=== PATIENT | female | born 1995 | race Caucasian/White ===

== ENCOUNTER 2017-08-09 17:07 | Emergency (ER) | payer MEDICAID ==
[~2017-08-09] VITALS: Ht 170.2 cm; Wt 86.5 kg
[2017-08-09 17:09] VITALS: Ht 170.2 cm; Wt 86.5 kg
[2017-08-09] MEDS ORDERED: KET2CR15 TOP (17:29)
--- NOTE | 2017-08-09 17:34 | ERA ---
ER Documentation Chief Complaint Date/Time DATE: 08/09/17 TIME: 17:32 Chief Complaint GENERALIZE BODY RASH X2 WKS, ITCHY. HPI 22-year-old female presenting with the chief complaints of generalized body rash is more prominent on the arms and legs 2 weeks. Described as mildly pruritic. Denies fever, rapid progression of symptoms, recent antibiotic use, symptomatic close contacts, so diabetes, pain, opening in the skin or similar symptoms in the past. Patients vaccination status is up to date. Patient has no other complaints and describes no other associated manifestations. Nursing notes have been reviewed and are consistent with history given. ROS All systems reviewed and are negative except as per history of present illness. Medications Home Meds Active Scripts Ketoconazole* (Ketoconazole* 2% Cream (15gm)) 1 Applic Cr, 1 APPLIC TOP BID for 14 Days, TUB Prov:MITCHEL SINGH PA-C 08/09/17 Allergies Allergies: Coded Allergies: No Known Drug Allergies (Verified Allergy, 03/17/13) PMhx/Soc Hx Alcohol Use: No Hx Substance Use: No Hx Tobacco Use: No Physical Exam Vitals Vital Signs Date Time Temp Pulse Resp B/P Pulse Ox O2 Delivery O2 Flow Rate FiO2 08/09/17 17:09 97.6 61 20 120/65 98 Physical Exam Const: Overweight. No acute distress. Skin: Diffuse hyperpigmented macules more prominent on the arms and lower legs. No ulcer, induration, jaundice. Good turgor. Ext: No cyanosis or edema noted. Head: Normocephalic. As noted in skin exam. Eyes: Non-injected; No scleral erythema, or discharge. EOMI and SANDI bilaterally. Ears: Normal External Ears, EACs clear, TM normal bilaterally without erythema. Nose: Normal nose without discharge, septal deviation, or sinus tenderness. Oral: No oral edema visualized. Mucous membranes moist and pink. Neck: No cervical lymphadenopathy, or masses. Trachea midline. Supple ~ No meningismus. Pulm: Good air movement in upper and lower respiratory tracts. No dyspnea, stridor, tripoding or drooling. Clear to auscultation bilaterally. Cardio: Regular rate and rhythm. No JVD grossly observed. Radial and posterior tibial pulses 2+ bilaterally. No cyanosis. Capillary refill less than 2 seconds. Abd: Soft, non tender, non distended. No guarding. Normal bowel sounds. MS: Normal motor strength, normal tone with gross examination. Back: No midline or flank tenderness. Neur: Neurovascularly intact bilaterally. Awake, alert and oriented x3. Procedures/MDM 22-year-old female presenting with a chief complaint of rash 2 weeks as described in history and physical examination. Signs and symptoms are most consistent with tinea versicolor. Patient will be given ketoconazole topical cream twice daily. I will suspicion for EM, SJS, TAVIA and, or other life- threatening pathologies. I have spoke with the patient regarding their condition and future management. They have verbally responded that they understand their status and treatment plan. The patients vitals are stable, and their current condition is appropriate for discharge. The patient will be given discharge instructions with return precautions. Departure Diagnosis: Primary Impression: Tinea versicolor due to Malassezia furfur Condition: Stable Patient Instructions: Tinea Versicolor Additional Instructions: Follow up with your PCP within the next 1-3 days for a more thorough evaluation and a possible referral to a specialist. Return the the emergency department immediately if symptoms worsen or change. If you have any questions regarding medications, ask your pharmacist or us before you leave. If any adverse reactions occur while taking your medications, discontinue the treatment and return to the emergency department immediately. Take your medications as directed, and complete the entire course of treatment. MITCHEL SINGH PA-C Aug 09, 2017 17:34
== END 2017-08-09 17:44 | disposition home or self-care (01) ==
LOC: FTE 17:07
DX: B36.8 Other specified superficial mycoses (principal)
CPT/HCPCS: 99283

== ENCOUNTER 2018-11-30 14:03 | Inpatient (IN) | payer OTHER ==
[~2018-11-30] VITALS: Ht 170.2 cm; Wt 91.2 kg
[~2018-11-30 14:03] MED LIST: KET2CR15 TOP
[2018-11-30 14:13] VITALS: BMI 31.5
[2018-11-30 14:14] VITALS: BP 129/82; PULSE 70; RESP 18
[2018-11-30 14:27] VITALS: Ht 170.2 cm; Wt 91.2 kg
--- NOTE | 2018-11-30 17:36 | HP ---
Date/Time of Note Date/Time of Note DATE: 11/30/18 TIME: 17:34 OB - History Hx of Present Free Text/Dictation G1P)@35+wks GA with Borderline HTN and +1 pr in Urine and Uric acid of 6 : 1 Para: 0 Care: Good Care Ultrasounds: Normal mid trimester US Obstetrical Complications: None Medical Complications: None Past Family/Social History * Past Medical, Surgical, Family and Obstetric Histories reviewed from chart. OB Admission Exam Vital Signs Vital Signs Vital Signs Date Temp Pulse Resp B/P (MAP) Pulse Ox O2 O2 Flow FiO2 Time Delivery Rate 11/30/18 97.6 70 18 129/82 14:14 (98) Physical Exam Abdomen: WNL Cervical Dilatation: None Effacement: 0% Station: Ballotable Membranes: Intact Heart Rate: 140's Accelerations: Accelerations Present Decelerations: No Decelerations Varibility: Moderate Last 72 hours Lab Results CBC & BMP 11/30/18 15:31 Liver Function Test 11/30/18 15:31 Alanine Aminotransferase (ALT/SGPT) 23 Albumin 3.9 Alkaline Phosphatase 146 H Aspartate Amino Transf (AST/SGOT) 31 Direct Bilirubin 0.00 Total Protein 7.9 OB Assessment/Plan Reason for admission: observation Plan: Expectant Management Other plan: Close monitoring 24 hr urine for pr PIH panel tomorrow DARLIN BETANCOURT M.D. Nov 30, 2018 17:36
--- NOTE | 2018-11-30 17:36 | TRIAGE ---
OB Triage Datetime Report Generated by CPN: 11/30/2018 17:36 Datetime: 11/30/2018 16:44 Labor Evaluation Frequency: 0 Monitor Mode: External Pattern: Normal: <= 5 Contractions in 10 Minutes Resting Tone [place]: Relaxed Heart Rate FHR Baseline Rate: 145 Monitor Mode: External US FHR Baseline Changes: No Baseline Change Variability: Moderate 6-25 bpm Accelerations: 15X15 Decelerations: None Category: Category I Datetime: 11/30/2018 16:43 Vaginal Exam Dilatation (cms): 0.0 Effacement (%): 0 Station: -2 Exam By: Ghazal WIGGINS Datetime: 11/30/2018 15:00 Labor Evaluation Frequency: 1/HR Duration (sec)2399: 70 Pattern: Normal: <= 5 Contractions in 10 Minutes Resting Tone [place]: Relaxed Heart Rate FHR Baseline Rate: 150 Monitor Mode: External US Variability: Moderate 6-25 bpm Accelerations: 15X15 Decelerations: None Category: Category I Datetime: 11/30/2018 14:17 EGA: 35.1 Datetime: 11/30/2018 14:15 Time of Arrival: 11/30/2018 13:42 Arrived By: Ambulatory Arrived From: Home Chief Complaint: lower back pain/UCs Movement: Present Contractions: Irregular Rupture of Membranes: Denies Vaginal Bleeding: None Vaginal Discharge: Denies Recent Sexual Intercouse: Denies Abdominal Trauma: Not Applicable Patient Complaints: Contractions; Back Pain Time Provider Notified: 11/30/2018 14:15 Provider Notified: dr jane Initial Plan: nst Datetime: 11/30/2018 14:14 Assessment Type: Triage Maternal Assessment Level of Consciousness: Fully Conscious DTR's/Clonus: DTRs 2+; No Clonus Headache: Denies Blurred Vision: No Respiratory Effort: Unlabored; Regular Rhythm; Equal Expansion Breath Sounds, Left: Clear and Equal Breath Sounds, Right: Clear and Equal Nausea/Vomiting: Denies RUQ Epigastric Pain: Denies Lower Extremities Edema: None Degree: None Upper Extremities Edema: None Degree: None Facial Edema: None Fall Risk Assessment History of Falling: (0) No Secondary Diagnosis: (0) No Ambulatory Aid: (0) Bedrest/Nurse Assist IV Therapy: (0) No Gait: (0) Normal/Bedrest/Immobile Mental Status: (0) Oriented to Own Ability Fall Score: 0 Fall Risk Score Definition: No Risk: No action required Datetime: 11/30/2018 14:07 Stage of : OB Triage
[2018-12-01] MEDS: FERROUS SULFATE (EC) 325 MG TAB PO SCH (08:45)
[2018-12-01] MEDS: DOCUSATE SODIUM 100 MG CAP PO SCH (08:45)
[2018-12-01] MEDS: PRENATAL VITAMIN PO SCH (08:45)
--- NOTE | 2018-12-01 12:15 | NUR ---
SW NOTE: CONSULT - QUESTIONS RE: DISABILITY This editorial writer reviewed the pt's chart and met with her at bedside. Pt was AA&Ox4. She spoke [place]an fluently Pt is G-1 and P-0. GA is 31 weeks. Her EDC is on 01/03/19. Pt stated the address on the face sheet, [address], is to her mother's, Fior Bautista, , who is supportive. Pt and FoB, Jorge Luis Mix, : 02/23/97, live together in [address]. Pt's phone # is: [phone]. 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 FoB works as a paper cup machine operator. Pt denied any P/S issues. Stated she has a good understanding of her Dx and PoC. Stated she completed the Disability claim form and turned it in to Dr. Mccarthy's office one week ago and is still waiting to hear re: the status. Pt was inquiring whether her Dx qualifies her for disability. This editorial writer encouraged the pt to inquire with her OB re: her medical condition and criteria for [facility] and also encouraged her to call the [facility] with any qualification questions. PT verbalized a good understanding. SW provided supportive intervention and will remain available. Addendum: 12/01/18 at 1339 by SARAH EDEN LCSW Amended: Links added.
[2018-12-01] MEDS: CEPHALEXIN 500 MG CAP PO SCH (23:02)
[2018-12-02] MEDS: CEPHALEXIN 500 MG CAP PO SCH (09:08)
[2018-12-02] MEDS: FERROUS SULFATE (EC) 325 MG TAB PO SCH (09:11)
[2018-12-02] MEDS: PRENATAL VITAMIN PO SCH (09:11)
[2018-12-02] MEDS: DOCUSATE SODIUM 100 MG CAP PO SCH (09:11)
--- NOTE | 2018-12-02 15:10 | QN ---
Documentation Comment Patient denies any complaint. Denies any headache, blurred vision, epigastric pain or right upper quadrant pain. Denies any leaking of fluid, vaginal bleeding decreased movement. General appearance: Alert and oriented x4 does not appear to be in any acute distress Abdomen: Soft, gravid, fundal height consistent with gestational age, NST: Category 1 UA consistent with UTI, 3+ leukocyte Laboratory Tests Test 12/01/18 18:00 Urine Random Creatinine 45.65 Urine Collection Duration 24 Urine Total Volume 24 Hours 2500 Urine Creatinine Timed 24 Creatinine Clearance 139.0 Urine Total Volume (Protein) 2500 Urine Total Protein 24 Hour 300.0 H Assessment: Admitted for rule out PIH No evidence of PIH. Asymptomatic UTI, started on Keflex 500 mg 4 times daily testing reassuring DC home Adequate hydration and complete antibiotics discussed with the patient, Rx provided Strict labor precautions kick count precaution for PIH was given Return to clinic in triage in 3 days for NST/BPP and follow-up of the blood pressure Signs and symptoms of PIH as well as labor discussed with the patient. Patient verbalized understanding. All questions were answered. MANUEL ESCALANTE MD Dec 02, 2018 15:10
[2018-12-16] MEDS ORDERED: PREN-99 PO (12:40)
[2018-12-16] MEDS ORDERED: CALC667C PO (12:41)
== END 2018-12-02 11:59 | disposition home or self-care (01) | DRG 833 ==
LOC: OBT 14:03 → L-D 14:06 → OBT 17:45 → L-D 17:45
PROVIDERS: ADMIT Obstetrics & Gynecology; ATTEND Obstetrics & Gynecology
DX: O26.893 Other specified pregnancy related conditions, third trimester (principal); R03.0 Elevated blood-pressure reading, without diagnosis of hypertension; O23.43 Unspecified infection of urinary tract in pregnancy, third trimester; Z3A.35 35 weeks gestation of pregnancy
CPT/HCPCS: 76815; 76818; 80053; 81001; 82575; 84156; 84560; 85025; 87086; G0463

== ENCOUNTER 2018-12-23 11:55 | Outpatient (CLI) | payer OTHER ==
[~2018-12-23] VITALS: Ht 170.2 cm; Wt 92.0 kg
[~2018-12-23 11:55] MED LIST changes: +CALC667C PO; -KET2CR15 TOP; +PREN-99 PO
[2018-12-23 13:09] VITALS: Ht 170.2 cm; Wt 92.0 kg
[2018-12-23 13:10] VITALS: BP 124/76; PULSE 68; RESP 18
--- NOTE | 2018-12-23 16:40 | TRIAGE ---
OB Triage Datetime Report Generated by CPN: 12/23/2018 16:39 Datetime: 12/23/2018 15:48 Stage of : OB Triage Datetime: 12/23/2018 15:46 Labor Evaluation Frequency: 0 Monitor Mode: External Pattern: Normal: <= 5 Contractions in 10 Minutes Resting Tone Conley: Relaxed Heart Rate FHR Baseline Rate: 135 Monitor Mode: External US Variability: Moderate 6-25 bpm Accelerations: 10X10 Decelerations: None Category: Category I Pain Assessment Pain Scale: 0 Pain Presence: None/Denies Pain Type: N/A Pain Goal: 3 Pain Relief Measures: Comfort Measures Datetime: 12/23/2018 15:42 Stage of : OB Triage Datetime: 12/23/2018 15:19 Labor Evaluation Frequency: OCCAS Monitor Mode: External Duration (sec)2399: 50-70 Pattern: Normal: <= 5 Contractions in 10 Minutes Resting Tone Conley: Relaxed Heart Rate FHR Baseline Rate: 135 Monitor Mode: External US Variability: Moderate 6-25 bpm Accelerations: 10X10 Decelerations: None Category: Category I Pain Assessment Pain Scale: 0 Pain Presence: None/Denies Pain Type: N/A Pain Goal: 3 Datetime: 12/23/2018 14:27 Labor Evaluation Frequency: 6-8 Monitor Mode: External Duration (sec)2399: 40-60 Quality: Mild Pattern: Normal: <= 5 Contractions in 10 Minutes Resting Tone Conley: Relaxed Heart Rate FHR Baseline Rate: 135 Monitor Mode: External US Variability: Moderate 6-25 bpm Accelerations: 10X10 Decelerations: None Category: Category I Pain Assessment Pain Scale: 0 Pain Presence: None/Denies Pain Type: N/A Pain Goal: 3 Pain Relief Measures: Comfort Measures Pain Assessment Comments: [place] FEELS [facility] Datetime: 12/23/2018 13:59 Stage of : OB Triage Datetime: 12/23/2018 13:57 Labor Evaluation Frequency: x2 Monitor Mode: Internal Duration (sec)2399: 60-70 Quality: Mild Resting Tone Conley: Relaxed Heart Rate FHR Baseline Rate: 135 Monitor Mode: External US FHR Baseline Changes: No Baseline Change Variability: Moderate 6-25 bpm Accelerations: 15X15 Decelerations: None Category: Category I Datetime: 12/23/2018 13:35 Stage of : OB Triage Datetime: 12/23/2018 13:17 Stage of : OB Triage Datetime: 12/23/2018 13:06 Stage of : OB Triage Assessment Type: Triage Maternal Assessment Level of Consciousness: Fully Conscious DTR's/Clonus: DTRs 2+; No Clonus Headache: Denies Blurred Vision: No Respiratory Effort: Unlabored; Regular Rhythm; Equal Expansion Breath Sounds, Left: Clear and Equal Breath Sounds, Right: Clear and Equal Nausea/Vomiting: Denies RUQ Epigastric Pain: Denies Lower Extremities Edema: None Degree: None Upper Extremities Edema: None Degree: None Facial Edema: None Fall Risk Assessment History of Falling: (0) No Secondary Diagnosis: (0) No Ambulatory Aid: (0) Bedrest/Nurse Assist IV Therapy: (0) No Gait: (0) Normal/Bedrest/Immobile Mental Status: (0) Oriented to Own Ability Fall Score: 0 Fall Risk Score Definition: No Risk: No action required Labor Evaluation Frequency: none Monitor Mode: External Heart Rate FHR Baseline Rate: 145 Monitor Mode: External US FHR Baseline Changes: No Baseline Change Variability: Moderate 6-25 bpm Accelerations: 15X15 Decelerations: None Category: Category I Datetime: 12/23/2018 13:05 Stage of : OB Triage Temperature Route: Oral Pain Assessment Pain Scale: 0 Pain Presence: None/Denies Pain Type: N/A Datetime: 12/23/2018 13:03 Time of Arrival: 12/23/2018 11:41 EGA: 38.3 Arrived By: Ambulatory Arrived From: Office Chief Complaint: pt is here from the clinic, She had elevated BPs in the clinic Movement: Present Contractions: Denies/Absent Rupture of Membranes: Denies Vaginal Bleeding: None Vaginal Discharge: Denies Recent Sexual Intercouse: Denies Abdominal Trauma: Not Applicable Patient Complaints: None Time Provider Notified: 12/23/2018 13:39 Provider Notified: Dr Mccarthy Initial Plan: EFM Datetime: 12/16/2018 15:18 Decelerations: Early Datetime: 12/16/2018 15:00 Stage of : OB Triage Labor Evaluation Frequency: 0 Monitor Mode: External Pattern: Normal: <= 5 Contractions in 10 Minutes Resting Tone Conley: Relaxed Heart Rate FHR Baseline Rate: 135 Monitor Mode: External US Variability: Moderate 6-25 bpm Accelerations: 15X15 Decelerations: None Category: Category I Datetime: 12/16/2018 14:16 Stage of : OB Triage Labor Evaluation Frequency: 0 Monitor Mode: External Pattern: Normal: <= 5 Contractions in 10 Minutes Resting Tone Conley: Relaxed Heart Rate FHR Baseline Rate: 135 Monitor Mode: External US Variability: Minimal - Undetectable to <=5 bpm Accelerations: 10X10 Decelerations: None Category: Category II Pain Presence: None/Denies Pain Type: N/A Datetime: 12/16/2018 13:32 Time of Arrival: 12/16/2018 12:12 EGA: 37.3 Chief Complaint: SENT FROM CLINIC FOR [facility] WORK UP Movement: Present Contractions: Denies/Absent Rupture of Membranes: Denies Vaginal Bleeding: None Vaginal Discharge: Denies Recent Sexual Intercouse: Denies Abdominal Trauma: Not Applicable Patient Complaints: None Time Provider Notified: 12/16/2018 12:30 Provider Notified: DR. BRAXTON Initial Plan: NST BPP [facility] WORK UP Datetime: 12/16/2018 13:28 Labor Evaluation Frequency: X1 Monitor Mode: External Duration (sec)2399: 60-80 Pattern: Normal: <= 5 Contractions in 10 Minutes Resting Tone Conley: Relaxed Heart Rate FHR Baseline Rate: 145 Monitor Mode: External US FHR Baseline Changes: No Baseline Change Accelerations: 15X15 Decelerations: None Category: Category I Datetime: 12/02/2018 11:49 Time of Arrival: 12/16/2018 12:12 EGA: 37.3 Arrived By: Ambulatory Arrived From: Dr. Gomez Chief Complaint: SENT FROM CLINIC FOR [facility] EVALUATION Movement: Present Contractions: Denies/Absent Rupture of Membranes: Denies Vaginal Bleeding: None Vaginal Discharge: Denies Recent Sexual Intercouse: Denies Abdominal Trauma: Not Applicable Patient Complaints: None Time Provider Notified: 12/16/2018 12:30 Provider Notified: DR. ESHGHAIAN Initial Plan: NST BPP [facility] WORK UP Datetime: 12/02/2018 11:20 Stage of : Antepartum Datetime: 12/02/2018 10:01 Labor Evaluation Frequency: 0 Monitor Mode: External Pattern: Normal: <= 5 Contractions in 10 Minutes Resting Tone Conley: Relaxed Heart Rate FHR Baseline Rate: 135 Monitor Mode: External US Variability: Moderate 6-25 bpm Accelerations: 10X10 Decelerations: None Category: Category I Pain Assessment Pain Scale: 0 Pain Presence: None/Denies Pain Type: N/A Pain Goal: 3 Pain Relief Measures: Comfort Measures Datetime: 12/02/2018 09:01 Maternal Assessment Level of Consciousness: Fully Conscious DTR's/Clonus: DTRs Absent Headache: Denies Respiratory Effort: Unlabored Breath Sounds, Left: Clear and Equal Breath Sounds, Right: Clear and Equal Nausea/Vomiting: Denies RUQ Epigastric Pain: Denies Labor Evaluation Frequency: 0 Monitor Mode: External Pattern: Normal: <= 5 Contractions in 10 Minutes Resting Tone Conley: Relaxed Heart Rate FHR Baseline Rate: 135 Monitor Mode: External US Variability: Moderate 6-25 bpm Accelerations: 10X10 Decelerations: None Category: Category I Pain Assessment Pain Scale: 0 Pain Presence: None/Denies Pain Type: N/A Pain Goal: 3 Pain Relief Measures: Comfort Measures Datetime: 12/02/2018 08:05 Labor Evaluation Frequency: 0 Monitor Mode: External Pattern: Normal: <= 5 Contractions in 10 Minutes Resting Tone Conley: Relaxed Heart Rate FHR Baseline Rate: 130 Monitor Mode: External US Variability: Moderate 6-25 bpm Accelerations: 10X10 Decelerations: None Category: Category I Pain Assessment Pain Scale: 3 Pain Presence: None/Denies Pain Type: N/A Pain Goal: 0 Datetime: 12/02/2018 08:02 Assessment Type: Ongoing Assessment Maternal Assessment Level of Consciousness: Fully Conscious DTR's/Clonus: DTRs 2+; No Clonus Headache: Denies Blurred Vision: No Respiratory Effort: Unlabored; Regular Rhythm; Equal Expansion Breath Sounds, Left: Clear and Equal Breath Sounds, Right: Clear and Equal Nausea/Vomiting: Denies RUQ Epigastric Pain: Denies Facial Edema: None Fall Risk Assessment History of Falling: (0) No Secondary Diagnosis: (0) No Ambulatory Aid: (0) Bedrest/Nurse Assist IV Therapy: (0) No Gait: (0) Normal/Bedrest/Immobile Mental Status: (0) Oriented to Own Ability Fall Score: 0 Fall Risk Score Definition: No Risk: No action required Datetime: 12/02/2018 06:38 Stage of : Antepartum Monitor Mode: External Resting Tone Conley: Relaxed Contraction Comments: NONE Heart Rate FHR Baseline Rate: 120 Monitor Mode: External US Variability: Moderate 6-25 bpm Accelerations: 15X15 Decelerations: None Category: Category I Pain Assessment Pain Scale: 0 Pain Presence: None/Denies Pain Type: N/A Pain Relief Measures: Comfort Measures Datetime: 12/02/2018 05:30 Stage of : Antepartum Labor Evaluation Frequency: Occasional Monitor Mode: External Resting Tone Conley: Relaxed Heart Rate FHR Baseline Rate: 120 Variability: Moderate 6-25 bpm Accelerations: 15X15 Decelerations: None Category: Category I Pain Assessment Pain Scale: 0 Pain Presence: None/Denies Pain Type: N/A Pain Relief Measures: Comfort Measures Datetime: 12/02/2018 04:31 Stage of : Antepartum Labor Evaluation Frequency: Occasional Monitor Mode: External Resting Tone Conley: Relaxed Heart Rate FHR Baseline Rate: 120 Monitor Mode: External US Variability: Marked >25 bpm Accelerations: 15X15 Category: Category I Pain Assessment Pain Scale: 0 Pain Presence: None/Denies Pain Type: N/A Pain Relief Measures: Comfort Measures Datetime: 12/02/2018 04:00 Stage of : Antepartum Datetime: 12/02/2018 03:30 Stage of : Antepartum Labor Evaluation Frequency: Occasional Monitor Mode: External Resting Tone Conley: Relaxed Heart Rate FHR Baseline Rate: 125 Monitor Mode: External US Variability: Moderate 6-25 bpm Accelerations: 15X15 Decelerations: Variable Category: Category II Pain Assessment Pain Scale: 0 Pain Presence: None/Denies Pain Type: N/A Pain Relief Measures: Comfort Measures Datetime: 12/02/2018 02:30 Stage of : Antepartum Labor Evaluation Frequency: NONE Monitor Mode: External Resting Tone Conley: Relaxed Heart Rate FHR Baseline Rate: 125 Monitor Mode: External US Variability: Moderate 6-25 bpm Accelerations: Prolonged Decelerations: None Category: Category I Pain Presence: None/Denies Pain Type: N/A Pain Relief Measures: Comfort Measures Datetime: 12/02/2018 01:31 Stage of : Antepartum Heart Rate FHR Baseline Rate: 135 Monitor Mode: External US Variability: Moderate 6-25 bpm Accelerations: Prolonged Category: Category II Pain Assessment Pain Scale: 0 Pain Presence: None/Denies Pain Type: N/A Pain Relief Measures: Comfort Measures Datetime: 12/02/2018 00:31 Stage of : Antepartum Labor Evaluation Frequency: NONE Monitor Mode: External Resting Tone Conley: Relaxed Heart Rate FHR Baseline Rate: 135 Monitor Mode: External US Variability: Moderate 6-25 bpm Accelerations: Prolonged Decelerations: None Category: Category I Datetime: 12/01/2018 23:32 Stage of : Antepartum Labor Evaluation Frequency: none Monitor Mode: External Resting Tone Conley: Relaxed Heart Rate FHR Baseline Rate: 135 Monitor Mode: External US Variability: Moderate 6-25 bpm Accelerations: 15X15 Decelerations: Variable Category: Category II Pain Assessment Pain Scale: 0 Pain Presence: None/Denies Pain Type: N/A Pain Relief Measures: Comfort Measures Datetime: 12/01/2018 22:31 Stage of : Labor Datetime: 12/01/2018 22:24 Stage of : Antepartum Monitor Mode: External Resting Tone Conley: Relaxed Contraction Comments: None Heart Rate FHR Baseline Rate: 130 Monitor Mode: External US Variability: Moderate 6-25 bpm Accelerations: 15X15 Decelerations: Variable Category: Category II Pain Assessment Pain Scale: 0 Pain Presence: None/Denies Pain Type: N/A Pain Relief Measures: Comfort Measures Datetime: 12/01/2018 22:15 Stage of : Antepartum Datetime: 12/01/2018 21:31 Stage of : Antepartum Labor Evaluation Frequency: none Monitor Mode: External Resting Tone Conley: Relaxed Heart Rate FHR Baseline Rate: 135 Monitor Mode: External US Variability: Moderate 6-25 bpm Accelerations: 15X15 Decelerations: Variable Category: Category II Pain Assessment Pain Scale: 0 Pain Presence: None/Denies Pain Type: N/A Pain Relief Measures: Comfort Measures Datetime: 12/01/2018 20:50 Stage of : Antepartum Datetime: 12/01/2018 20:35 Stage of : Antepartum Labor Evaluation Frequency: Occasional Monitor Mode: External Resting Tone Conley: Relaxed Heart Rate FHR Baseline Rate: 150 Monitor Mode: External US Variability: Moderate 6-25 bpm Accelerations: 15X15 Decelerations: Variable Category: Category II Pain Assessment Pain Scale: 0 Pain Presence: None/Denies Pain Type: N/A Pain Relief Measures: Comfort Measures Datetime: 12/01/2018 19:38 Stage of : Antepartum Monitor Mode: External Resting Tone Conley: Relaxed Contraction Comments: NONE Heart Rate FHR Baseline Rate: 135 Monitor Mode: External US Variability: Moderate 6-25 bpm Accelerations: 15X15 Decelerations: Variable Category: Category II Pain Assessment Pain Scale: 0 Pain Presence: None/Denies Pain Type: N/A Pain Relief Measures: Comfort Measures Datetime: 12/01/2018 19:35 Assessment Type: Ongoing Assessment Maternal Assessment Level of Consciousness: Fully Conscious DTR's/Clonus: DTRs 2+; No Clonus Headache: Denies Blurred Vision: No Respiratory Effort: Unlabored; Regular Rhythm; Equal Expansion Breath Sounds, Left: Clear and Equal Breath Sounds, Right: Clear and Equal Nausea/Vomiting: Denies RUQ Epigastric Pain: Denies Lower Extremities Edema: None Degree: None Upper Extremities Edema: None Degree: None Facial Edema: None Fall Risk Assessment History of Falling: (0) No Secondary Diagnosis: (0) No Ambulatory Aid: (0) Bedrest/Nurse Assist IV Therapy: (0) No Gait: (0) Normal/Bedrest/Immobile Mental Status: (0) Oriented to Own Ability Fall Score: 0 Fall Risk Score Definition: No Risk: No action required Datetime: 12/01/2018 18:47 Stage of : Antepartum Labor Evaluation Frequency: 0 Monitor Mode: External Pattern: Normal: <= 5 Contractions in 10 Minutes Resting Tone Conley: Relaxed Heart Rate FHR Baseline Rate: 145 Monitor Mode: External US FHR Baseline Changes: No Baseline Change Variability: Moderate 6-25 bpm Accelerations: 15X15 Decelerations: None Category: Category I Datetime: 12/01/2018 17:59 Heart Rate FHR Baseline Rate: 155 Monitor Mode: External US Variability: Moderate 6-25 bpm Accelerations: 15X15 Decelerations: None Category: Category I Datetime: 12/01/2018 17:57 Comments: BACK ON MONITOR Datetime: 12/01/2018 17:15 Stage of : Antepartum Labor Evaluation Frequency: 0 Monitor Mode: External Pattern: Normal: <= 5 Contractions in 10 Minutes Resting Tone Conley: Relaxed Heart Rate FHR Baseline Rate: 135 Monitor Mode: External US Variability: Moderate 6-25 bpm Accelerations: 15X15 Decelerations: None Category: Category I Pain Presence: None/Denies Pain Type: N/A Datetime: 12/01/2018 16:08 Stage of : Antepartum Labor Evaluation Frequency: 0 Monitor Mode: External Pattern: Normal: <= 5 Contractions in 10 Minutes Resting Tone Conley: Relaxed Heart Rate FHR Baseline Rate: 135 Monitor Mode: External US Variability: Moderate 6-25 bpm Accelerations: 15X15 Decelerations: None Category: Category I Pain Presence: None/Denies Pain Type: N/A Datetime: 12/01/2018 14:43 Stage of : Antepartum Labor Evaluation Frequency: 0 Monitor Mode: External Pattern: Normal: <= 5 Contractions in 10 Minutes Resting Tone Conley: Relaxed Heart Rate FHR Baseline Rate: 145 Monitor Mode: External US FHR Baseline Changes: No Baseline Change Variability: Moderate 6-25 bpm Accelerations: 15X15 Decelerations: None Category: Category I Pain Presence: None/Denies Pain Type: N/A Datetime: 12/01/2018 13:27 Stage of : Antepartum Labor Evaluation Frequency: 0 Monitor Mode: External Pattern: Normal: <= 5 Contractions in 10 Minutes Resting Tone Conley: Relaxed Heart Rate FHR Baseline Rate: 135 Monitor Mode: External US Variability: Moderate 6-25 bpm Accelerations: 15X15 Decelerations: None Category: Category I Pain Presence: None/Denies Pain Type: N/A Datetime: 12/01/2018 12:12 Stage of : Antepartum Maternal Assessment Level of Consciousness: Fully Conscious DTR's/Clonus: DTRs 2+ Headache: Denies Blurred Vision: No Nausea/Vomiting: Denies RUQ Epigastric Pain: Denies Facial Edema: None Labor Evaluation Frequency: 0 Monitor Mode: External Pattern: Normal: <= 5 Contractions in 10 Minutes Resting Tone Conley: Relaxed Heart Rate FHR Baseline Rate: 145 Monitor Mode: External US FHR Baseline Changes: No Baseline Change Variability: Moderate 6-25 bpm Accelerations: 15X15 Decelerations: None Category: Category I Pain Presence: None/Denies Pain Type: N/A Datetime: 12/01/2018 11:39 Stage of : Antepartum Labor Evaluation Frequency: 0 Monitor Mode: External Pattern: Normal: <= 5 Contractions in 10 Minutes Resting Tone Conley: Relaxed Heart Rate FHR Baseline Rate: 145 Monitor Mode: External US Variability: Moderate 6-25 bpm Accelerations: 15X15 Decelerations: None Category: Category I Pain Assessment Pain Scale: 0 Pain Presence: None/Denies Datetime: 12/01/2018 10:01 Stage of : Antepartum Labor Evaluation Frequency: 0 Monitor Mode: External Pattern: Normal: <= 5 Contractions in 10 Minutes Resting Tone Conley: Relaxed Heart Rate FHR Baseline Rate: 135 Monitor Mode: External US Variability: Moderate 6-25 bpm Accelerations: 15X15 Decelerations: None Category: Category I Pain Presence: None/Denies Pain Type: N/A Datetime: 12/01/2018 09:06 Stage of : Antepartum Labor Evaluation Frequency: 0 Monitor Mode: External Pattern: Normal: <= 5 Contractions in 10 Minutes Resting Tone Conley: Relaxed Heart Rate FHR Baseline Rate: 145 Monitor Mode: External US Variability: Moderate 6-25 bpm Accelerations: 15X15 Decelerations: None Category: Category I Pain Presence: None/Denies Pain Type: N/A Datetime: 12/01/2018 08:39 Stage of : Antepartum Labor Evaluation Frequency: 0 Monitor Mode: External Pattern: Normal: <= 5 Contractions in 10 Minutes Resting Tone Conley: Relaxed Heart Rate FHR Baseline Rate: 135 Monitor Mode: External US Variability: Moderate 6-25 bpm Accelerations: 15X15 Decelerations: None Category: Category I Pain Presence: None/Denies Pain Type: N/A Datetime: 12/01/2018 07:47 Stage of : Antepartum Assessment Type: Ongoing Assessment Maternal Assessment Level of Consciousness: Fully Conscious DTR's/Clonus: DTRs 2+; No Clonus Headache: Denies Blurred Vision: No Respiratory Effort: Unlabored; Regular Rhythm; Equal Expansion Breath Sounds, Left: Clear and Equal Breath Sounds, Right: Clear and Equal Nausea/Vomiting: Denies RUQ Epigastric Pain: Denies Lower Extremities Edema: None Degree: None Upper Extremities Edema: None Degree: None Facial Edema: None Temperature Route: Axillary Fall Risk Assessment History of Falling: (0) No Secondary Diagnosis: (0) No Ambulatory Aid: (0) Bedrest/Nurse Assist IV Therapy: (0) No Gait: (0) Normal/Bedrest/Immobile Mental Status: (0) Oriented to Own Ability Fall Score: 0 Fall Risk Score Definition: No Risk: No action required Labor Evaluation Frequency: 0 Monitor Mode: External Pattern: Normal: <= 5 Contractions in 10 Minutes Resting Tone Conley: Relaxed Heart Rate FHR Baseline Rate: 145 Monitor Mode: External US Variability: Moderate 6-25 bpm Accelerations: 15X15 Pain Assessment Pain Scale: 0 Pain Presence: None/Denies Pain Type: N/A Pain Goal: 0 Datetime: 12/01/2018 06:45 Stage of : Antepartum Quality: Mild Pattern: Normal: <= 5 Contractions in 10 Minutes Resting Tone Conley: Relaxed Heart Rate FHR Baseline Rate: 130 Monitor Mode: External US FHR Baseline Changes: No Baseline Change Variability: Moderate 6-25 bpm Accelerations: 15X15 Decelerations: None Category: Category I Pain Assessment Pain Scale: 0 Pain Presence: None/Denies Pain Type: N/A Datetime: 12/01/2018 05:50 Monitor Mode: External Quality: Mild Pattern: Normal: <= 5 Contractions in 10 Minutes Resting Tone Conley: Relaxed Heart Rate FHR Baseline Rate: 130 Monitor Mode: External US FHR Baseline Changes: No Baseline Change Variability: Moderate 6-25 bpm Accelerations: 15X15 Decelerations: None Category: Category I Datetime: 12/01/2018 05:00 Monitor Mode: External Quality: Mild Pattern: Normal: <= 5 Contractions in 10 Minutes Resting Tone Conley: Relaxed Heart Rate FHR Baseline Rate: 130 Monitor Mode: External US FHR Baseline Changes: No Baseline Change Variability: Moderate 6-25 bpm Accelerations: 15X15 Decelerations: None Category: Category I Datetime: 12/01/2018 03:59 Stage of : Antepartum Monitor Mode: External Quality: Mild Pattern: Normal: <= 5 Contractions in 10 Minutes Resting Tone Conley: Relaxed Heart Rate FHR Baseline Rate: 140 Monitor Mode: External US FHR Baseline Changes: No Baseline Change Variability: Moderate 6-25 bpm Accelerations: 15X15 Decelerations: None Category: Category I Pain Assessment Pain Scale: 0 Pain Presence: None/Denies Pain Type: N/A Datetime: 12/01/2018 02:17 Stage of : OB Triage Maternal Assessment Level of Consciousness: Fully Conscious DTR's/Clonus: DTRs 2+ Headache: Denies Blurred Vision: No Nausea/Vomiting: Denies RUQ Epigastric Pain: Denies Facial Edema: None Quality: Mild Pattern: Normal: <= 5 Contractions in 10 Minutes Resting Tone Conley: Relaxed Heart Rate FHR Baseline Rate: 140 Monitor Mode: External US FHR Baseline Changes: No Baseline Change Variability: Moderate 6-25 bpm Accelerations: 15X15 Decelerations: None Category: Category I Datetime: 12/01/2018 01:02 Stage of : Antepartum Monitor Mode: External US FHR Baseline Changes: No Baseline Change Variability: Moderate 6-25 bpm Accelerations: 15X15 Decelerations: None Category: Category I Datetime: 12/01/2018 00:42 Stage of : Antepartum Monitor Mode: External Quality: Mild Pattern: Normal: <= 5 Contractions in 10 Minutes Resting Tone Conley: Relaxed Heart Rate FHR Baseline Rate: 150 Monitor Mode: External US FHR Baseline Changes: No Baseline Change Variability: Moderate 6-25 bpm Accelerations: 15X15 Decelerations: None Category: Category I Pain Assessment Pain Scale: 0 Pain Presence: None/Denies Pain Type: N/A Datetime: 12/01/2018 00:03 Stage of : Antepartum Quality: Mild Pattern: Normal: <= 5 Contractions in 10 Minutes Resting Tone Conley: Relaxed Heart Rate FHR Baseline Rate: 150 Monitor Mode: External US FHR Baseline Changes: No Baseline Change Variability: Moderate 6-25 bpm Accelerations: 15X15 Pain Assessment Pain Scale: 0 Pain Presence: None/Denies Pain Type: N/A Datetime: 11/30/2018 23:01 Stage of : Antepartum Heart Rate FHR Baseline Rate: 150 Monitor Mode: External US Pain Assessment Pain Scale: 0 Pain Presence: None/Denies Datetime: 11/30/2018 22:30 Stage of : Antepartum Monitor Mode: External Quality: Mild Pattern: Normal: <= 5 Contractions in 10 Minutes Resting Tone Conley: Relaxed Heart Rate FHR Baseline Rate: 150 Monitor Mode: External US FHR Baseline Changes: No Baseline Change Variability: Moderate 6-25 bpm Accelerations: 15X15 Decelerations: None Category: Category I Pain Assessment Pain Scale: 0 Pain Presence: None/Denies Pain Type: N/A Datetime: 11/30/2018 21:58 Vaginal Exam Membrane Status: Intact Datetime: 11/30/2018 21:31 Heart Rate FHR Baseline Rate: 150 Monitor Mode: External US Datetime: 11/30/2018 21:05 Stage of : Antepartum Monitor Mode: External Quality: Mild Pattern: Normal: <= 5 Contractions in 10 Minutes Resting Tone Conley: Relaxed Heart Rate FHR Baseline Rate: 150 Monitor Mode: External US FHR Baseline Changes: No Baseline Change Variability: Moderate 6-25 bpm Accelerations: 15X15 Decelerations: None Category: Category I Datetime: 11/30/2018 20:29 Stage of : Antepartum Monitor Mode: External Resting Tone Conley: Relaxed Heart Rate FHR Baseline Rate: 150 Monitor Mode: External US Pain Assessment Pain Scale: 0 Pain Presence: None/Denies Pain Type: N/A Datetime: 11/30/2018 19:50 Assessment Type: Ongoing Assessment Maternal Assessment Level of Consciousness: Fully Conscious DTR's/Clonus: DTRs 2+; No Clonus Headache: Denies Blurred Vision: No Respiratory Effort: Unlabored; Regular Rhythm; Equal Expansion Breath Sounds, Left: Clear and Equal Breath Sounds, Right: Clear and Equal Nausea/Vomiting: Denies RUQ Epigastric Pain: Denies Lower Extremities Edema: None Degree: None Upper Extremities Edema: None Facial Edema: None Fall Risk Assessment History of Falling: (0) No Secondary Diagnosis: (0) No Ambulatory Aid: (0) Bedrest/Nurse Assist IV Therapy: (0) No Gait: (0) Normal/Bedrest/Immobile Mental Status: (0) Oriented to Own Ability Fall Score: 0 Fall Risk Score Definition: No Risk: No action required Comment: Datetime: 11/30/2018 19:00 Labor Evaluation Frequency: X1 Monitor Mode: External Duration (sec)2399: 30 Quality: Mild Pattern: Normal: <= 5 Contractions in 10 Minutes Resting Tone [place]: Relaxed Heart Rate FHR Baseline Rate: 145 Monitor Mode: External US FHR Baseline Changes: No Baseline Change Variability: Moderate 6-25 bpm Accelerations: 15X15 Decelerations: None Category: Category I Pain Assessment Pain Scale: 0 Pain Presence: None/Denies Pain Type: N/A Pain Goal: 7 Datetime: 11/30/2018 18:33 Labor Evaluation Frequency: 0 Monitor Mode: External Duration (sec)2399: 0 Resting Tone [place]: Relaxed Heart Rate FHR Baseline Rate: 140 Monitor Mode: External US FHR Baseline Changes: No Baseline Change Variability: Moderate 6-25 bpm Accelerations: 15X15 Decelerations: None Category: Category I Pain Assessment Pain Scale: 0 Pain Presence: None/Denies Pain Type: N/A Pain Goal: 7 Datetime: 11/30/2018 18:31 Assessment Type: Admission Assessment Vaginal Bleeding: None Maternal Assessment Level of Consciousness: Fully Conscious DTR's/Clonus: DTRs 2+; No Clonus Headache: Denies Blurred Vision: No Respiratory Effort: Unlabored; Regular Rhythm; Equal Expansion Breath Sounds, Left: Clear and Equal Breath Sounds, Right: Clear and Equal Nausea/Vomiting: Denies RUQ Epigastric Pain: Denies Facial Edema: None Fall Risk Assessment History of Falling: (0) No Secondary Diagnosis: (0) No Ambulatory Aid: (0) Bedrest/Nurse Assist IV Therapy: (0) No Gait: (0) Normal/Bedrest/Immobile Mental Status: (0) Oriented to Own Ability Fall Score: 0 Fall Risk Score Definition: No Risk: No action required Pain Assessment Pain Scale: 0 Pain Presence: None/Denies Pain Type: N/A Pain Goal: 8 Datetime: 11/30/2018 18:29 Stage of : Antepartum Temperature Route: Oral Datetime: 11/30/2018 18:26 Vaginal Bleeding: None Maternal Assessment Level of Consciousness: Fully Conscious DTR's/Clonus: DTRs 2+; No Clonus Headache: Denies Blurred Vision: No Respiratory Effort: Unlabored; Regular Rhythm; Equal Expansion Breath Sounds, Left: Clear and Equal Breath Sounds, Right: Clear and Equal Nausea/Vomiting: Denies RUQ Epigastric Pain: Denies Facial Edema: None Fall Risk Assessment History of Falling: (0) No Secondary Diagnosis: (0) No Ambulatory Aid: (0) Bedrest/Nurse Assist IV Therapy: (0) No Gait: (0) Normal/Bedrest/Immobile Mental Status: (0) Oriented to Own Ability Fall Score: 0 Fall Risk Score Definition: No Risk: No action required Datetime: 11/30/2018 18:06 Monitor Mode: External Comments: Assume care of pt at this time, report taken from [employer] RN Datetime: 11/30/2018 14:17 Time of Arrival: 11/30/2018 18:00 EGA: 35.1 Arrived By: Ambulatory Arrived From: Home Datetime: 11/30/2018 14:14 Fall Score: 0 Fall Risk Score Definition: No Risk: No action required
--- NOTE | 2018-12-23 16:57 | PN ---
Triage Information Date/Time December 23, 2018 Reason for visit: Elevated blood pressure Weeks of Gestation 38 weeks and 3 days /Para 1 para 0 Diabetes: none Hypertention: none Additional information 23-year-old with IUP at 38 weeks and 3 days was sent from the clinic for blood pressure monitoring due to elevated blood pressure in the office. She denies any leaking of fluid, vaginal bleeding decreased movement. Denies any headache, blurred vision epigastric pain or right upper quadrant pain. Blood pressures during monitoring in triage 120s-130s over 80s. She had only one episode of blood pressure 150s over 80s that resolved. She denies any symptoms. Objective Vital Signs Date Temp Pulse Resp B/P (MAP) Pulse Ox O2 O2 Flow FiO2 Time Delivery Rate 12/23/18 97.4 68 18 124/76 Room Air 13:10 (92) Heart Rate: 130's Heart Rate Comments Category 1 and reassuring Exam General appearance: Alert and oriented x4 does not appear to be in any acute distress Abdomen: Soft, gravid, fundal height consider gestational age NST: Category 1 BPP: 8 PIH panels are all within normal limits MILLA: 10.2 Results/Medications Result Diagram: 12/23/18 1428 12/23/18 1428 Results 24 hrs Laboratory Tests Test 12/23/18 13:45 12/23/18 14:28 Urine Color YELLOW Urine Clarity CLEAR Urine pH 6.0 Urine Specific Harrell 1.010 Urine Ketones NEGATIVE Urine Nitrite NEGATIVE Urine Bilirubin NEGATIVE Urine Urobilinogen NEGATIVE Urine Leukocyte Esterase TRACE A Urine Microscopic RBC 1 Urine Microscopic WBC 8 H Urine Bacteria FEW A Urine Hemoglobin NEGATIVE Urine Glucose NEGATIVE Urine Total Protein NEGATIVE White Blood Count 8.1 Red Blood Count 4.53 Hemoglobin 12.3 Hematocrit 38.3 Mean Corpuscular Volume 84.5 Mean Corpuscular Hemoglobin 27.2 L Mean Corpuscular Hemoglobin Concent 32.1 Red Cell Distribution Width 13.2 Platelet Count 290 Mean Platelet Volume 11.6 H Immature Granulocytes % 0.700 H Neutrophils % 69.5 Lymphocytes % 23.6 Monocytes % 4.7 Eosinophils % 1.0 Basophils % 0.5 Nucleated Red Blood Cells % 0.0 Immature Granulocytes # 0.060 H Neutrophils # 5.6 Lymphocytes # 1.9 Monocytes # 0.4 Eosinophils # 0.1 Basophils # 0.0 Nucleated Red Blood Cells # 0.0 Sodium Level 137 Potassium Level 4.4 Chloride Level 104 Carbon Dioxide Level 22 Anion Gap 11 Blood Urea Nitrogen 12 Creatinine 0.71 Est Glomerular Filtrat Rate mL/min > 60 Glucose Level 95 Uric Acid 6.3 Calcium Level 9.2 Total Bilirubin 0.3 Direct Bilirubin 0.00 Indirect Bilirubin 0.3 Aspartate Amino Transf (AST/SGOT) 33 Alanine Aminotransferase (ALT/SGPT) 19 Alkaline Phosphatase 207 H Total Protein 6.9 Albumin 3.4 Globulin 3.50 H Albumin/Globulin Ratio 0.97 Imaging Results PROCEDURE: US OB biophysical profile. CLINICAL INDICATION: decreased movements, hypertension TECHNIQUE: Multiple sonographic images of the pelvis were obtained. The images were reviewed on a PACS workstation. COMPARISON: 12/16/18 FINDINGS: There is a single live intrauterine gestation. Cardiac activity is present with 146 beats per minute. There is a vertex presentation. The placenta is anterior. There is no evidence of placental abruption. There is a normal amount of amniotic fluid with an MILLA = 10.2 cm. Biophysical profile: movement 2/2 tone 2/2. breathing 2/2 MILLA 2/2 Total 06/16 RPTAT: AA . IMPRESSION: Normal biophysical profile. . Disposition: Discharge Assessment/Plan IUP at 38 weeks and 3 days Mild gestational hypertension Asymptomatic PIH labs are normal Discussed with patient regarding induction at 39 weeks Strict presents a precaution labor precautions kick count discussed with patient Advised the patient to return to the Triage in 24 hours to drop to 24-hour urine protein as well as for monitoring and checking again the blood pressure Patient verbalized understanding. All questions were answered to patient's best satisfaction Signs and symptoms of preeclampsia discussed with patient and precaution was given Patient verbalized understanding plan of care MANUEL ESCALANTE MD Dec 23, 2018 16:57
== END 2018-12-23 16:10 | disposition home or self-care (01) ==
LOC: OBT 11:55 → L-D 11:55 → OBT 16:10
PROVIDERS: ATTEND Obstetrics & Gynecology
DX: O16.3 Unspecified maternal hypertension, third trimester (principal); O36.8130 Decreased fetal movements, third trimester, not applicable or unspecified; Z3A.38 38 weeks gestation of pregnancy
CPT/HCPCS: 76818; 80053; 81001; 84560; 85025; Z7500; G0463

== ENCOUNTER 2018-12-24 19:40 | Outpatient (CLI) | payer OTHER ==
[~2018-12-24] VITALS: Ht 170.2 cm; Wt 90.5 kg
[2018-12-24 21:08] VITALS: Ht 170.2 cm; Wt 90.5 kg
[2018-12-24 21:09] VITALS: BP 134/86; PULSE 73; RESP 17
--- NOTE | 2018-12-25 08:10 | TRIAGE ---
OB Triage Datetime Report Generated by CPN: 12/25/2018 08:10 Datetime: 12/25/2018 00:22 Stage of : OB Triage Frequency: Occasional Monitor Mode: External Duration (sec)2399: 40-50 Quality: Mild Pattern: Normal: <= 5 Contractions in 10 Minutes Resting Tone [place]: Relaxed FHR Baseline Rate: 140 Monitor Mode: External US FHR Baseline Changes: No Baseline Change Variability: Moderate 6-25 bpm Accelerations: 15X15 Decelerations: None Category: Category I Datetime: 12/25/2018 00:00 Stage of : OB Triage Frequency: Occasional Monitor Mode: External Duration (sec)2399: 40-60 Quality: Mild Pattern: Normal: <= 5 Contractions in 10 Minutes Resting Tone [place]: Relaxed FHR Baseline Rate: 140 Monitor Mode: External US FHR Baseline Changes: No Baseline Change Variability: Moderate 6-25 bpm Accelerations: 15X15 Decelerations: None Category: Category I Datetime: 12/24/2018 23:00 Stage of : OB Triage Frequency: Occasional Monitor Mode: External Duration (sec)2399: 40-50 Quality: Mild Pattern: Normal: <= 5 Contractions in 10 Minutes Resting Tone [place]: Relaxed FHR Baseline Rate: 140 Monitor Mode: External US FHR Baseline Changes: No Baseline Change Variability: Moderate 6-25 bpm Accelerations: 15X15 Decelerations: None Category: Category I Datetime: 12/24/2018 22:00 Stage of : OB Triage Frequency: Occasional Monitor Mode: External Duration (sec)2399: 40-50 Quality: Mild Pattern: Normal: <= 5 Contractions in 10 Minutes Resting Tone [place]: Relaxed FHR Baseline Rate: 140 Monitor Mode: External US Variability: Moderate 6-25 bpm Accelerations: 15X15 Decelerations: None Category: Category I Datetime: 12/24/2018 21:18 Dilatation (cms): 0.0 Effacement (%): 0 Station: -1 Exam By: EM Vaginal Bleeding: None Cervix, Consistency: Firm Cervix, Position: Posterior Presentation 'A': Cephalic Datetime: 12/24/2018 21:03 Time of Arrival: 12/24/2018 19:38 EGA: 38.4 Arrived By: Ambulatory Arrived From: Home Chief Complaint: PT HERE FOR UC'S SHE STATES ARE EVERY 5-10 MINUTES Movement: Present Contractions: Regular Rupture of Membranes: Denies Vaginal Bleeding: None Vaginal Discharge: Present Recent Sexual Intercouse: Denies Abdominal Trauma: Not Applicable Patient Complaints: Contractions Initial Plan: Monitor, check BPs Datetime: 12/24/2018 21:01 Stage of : OB Triage Assessment Type: Triage Level of Consciousness: Fully Conscious DTR's/Clonus: DTRs 2+; No Clonus Headache: Denies Blurred Vision: No Respiratory Effort: Unlabored; Regular Rhythm; Equal Expansion Breath Sounds, Left: Clear and Equal Breath Sounds, Right: Clear and Equal Nausea/Vomiting: Denies RUQ Epigastric Pain: Denies Lower Extremities Edema: None Degree: None Upper Extremities Edema: None Degree: None Facial Edema: None Temperature Route: Oral History of Falling: (0) No Secondary Diagnosis: (0) No Ambulatory Aid: (0) Bedrest/Nurse Assist IV Therapy: (0) No Gait: (0) Normal/Bedrest/Immobile Mental Status: (0) Oriented to Own Ability Fall Score: 0 Fall Risk Score Definition: No Risk: No action required Pain Scale: 7 Pain Presence: Intermittent Pain Type: Contraction Pain Location: Abdomen Pain Goal: 0
--- NOTE | 2018-12-25 09:16 | PN ---
Triage Information Date/Time Reason for visit: Abd/pelvic pain Weeks of Gestation 38 weeks and 4 days /Para G1 Diabetes: none Hypertention: none Objective Vital Signs Date Temp Pulse Resp B/P (MAP) Pulse Ox O2 O2 Flow FiO2 Time Delivery Rate 12/24/18 98.0 73 17 134/86 Room Air 21:09 (102) Heart Rate: 140's Contractions: 6-10 Minutes Apart Results/Medications Imaging Results 12/23/2018 There is a single live intrauterine gestation. Cardiac activity is present with 146 beats per minute. There is a vertex presentation. The placenta is anterior. There is no evidence of placental abruption. There is a normal amount of amniotic fluid with an MILLA = 10.2 cm. Biophysical profile: movement 2/2 tone 2/2. breathing 2/2 MILLA 2/2 Total 06/16 RPTAT: AA . IMPRESSION: Normal biophysical profile. . Disposition: Discharge Assessment/Plan 23-year-old 1 with single intrauterine at 38 weeks and 4 days with a JOSE LUIS of 01/03/2019 complaining of uterine contractions. She was seen with same complaint yesterday. heart rate is category 1. She has irregular uterine contractions. Ultrasound performed yesterday with BPP of 8 out of 8 and normal amniotic fluid. This cervical exam performed close/thick/high/cephalic/intact. Sign and symptom of labor, preeclampsia, feta l kick count discussed in detail with patient. She expressed understanding. All of her questions answered. She discharged home in stable condition with follow-up in 3 days with her primary OB. I strongly recommend come back to triage with regular uterine contraction or with any concern. FELA MICHELE Dec 25, 2018 09:16
== END 2018-12-25 00:31 | disposition home or self-care (01) ==
LOC: L-D 19:40 → OBT 19:40 → L-D 20:43 → OBT 12-25 00:31
PROVIDERS: ATTEND Obstetrics & Gynecology
DX: O26.893 Other specified pregnancy related conditions, third trimester (principal); Z3A.38 38 weeks gestation of pregnancy; R10.2 Pelvic and perineal pain
CPT/HCPCS: G0463

== ENCOUNTER 2018-12-25 15:34 | Inpatient (IN) | payer OTHER ==
[~2018-12-25] VITALS: Ht 170.2 cm; Wt 89.9 kg
[2018-12-25 15:54] VITALS: BP 143/97; PULSE 79; RESP 20; Ht 170.2 cm; Wt 89.9 kg
[2018-12-25] MEDS ORDERED: LACTATED RINGER'S 1,000 ML IV SCH (15:56)
[2018-12-25] MEDS ORDERED: BUTORPHANOL 2 MG INJ IV PRN (16:00)
[2018-12-25] MEDS ORDERED: OXYTOCIN 30 UNITS/LR 500 ML IV PRN ×2 (16:00→21:30)
[2018-12-25] MEDS ORDERED: CARBOPROST 250 MCG INJ IM PRN ×2 (16:00→21:30)
[2018-12-25] MEDS ORDERED: OXYTOCIN 30 UNITS/LR 500 ML IV SCH ×3 (16:00→21:02)
[2018-12-25] MEDS ORDERED: MISOPROSTOL 200 MCG TAB PR PRN ×2 (16:00→21:30)
[2018-12-25] MEDS ORDERED: METHYLERGONOVINE 0.2 MG INJ IM PRN (16:00)
[2018-12-25] MEDS ORDERED: OXYCODONE/ASPIRIN (4.88/325) TAB PO PRN (16:00)
[2018-12-25] MEDS ORDERED: LIDOCAINE 1% (MPF) 30 ML INJ INJ PRN (16:00)
[2018-12-25] MEDS ORDERED: AMPICILLIN 2 GM/NS (PMX) 100 ML IV ONE (16:00)
[2018-12-25] MEDS ORDERED: IBUPROFEN 600 MG TAB PO PRN (16:00)
--- NOTE | 2018-12-25 17:20 | HP ---
Date/Time of Note Date/Time of Note DATE: 12/25/18 TIME: 17:16 OB - History Hx of Present Free Text/Dictation December 25, 2018 Estimated Due Date: Jan 03, 2019 : 1 Para: 0 Spontaneous : 0 Therapeutic : 0 Care: Good Care Other Concerns: 23-year-old with IUP at 38 weeks and 5 days and care with Dr. Anita Issa, presented in active labor and she was noted to be 7-8 cm / 100% effaced -1, presentation vertex. GBS status unknown. records are not available and cannot be obtained due to weekend time. OB history significant for history of mild preeclampsia. She had elevated blood pressure in the mild range and had been seen last time 2 days ago in triage. A complete 24-hour urine protein that was 300 mg. Currently blood pressure in the range of 140s over 90s. She denies any headache, blurred vision epigastric pain or right upper quadrant pain. She denies any leaking of fluid, vaginal bleeding or decreased movement. She declined to have epidural. She denies any other complication during her course. Past Family/Social History * Past Medical, Surgical, Family and Obstetric Histories reviewed from chart. OB Admission Exam Vital Signs Vital Signs Vital Signs Date Temp Pulse Resp B/P (MAP) Pulse Ox O2 O2 Flow FiO2 Time Delivery Rate 12/25/18 97.9 79 20 143/97 Room Air 15:54 (112) Physical Exam HEENT: WNL Lungs: Clear Abdomen: WNL Extremities: Normal Reflexes: Normal Cervical Dilatation: 7cm Effacement: 100% Station: -1 Heart Rate: 120's Accelerations: Accelerations Present Decelerations: No Decelerations Varibility: Moderate Contractions on Admission: < 5 Minutes Apart Intensity: Moderate Last 72 hourBlood Glucose heart tracing category 1 Last 72 hours Lab Results CBC & BMP 12/25/18 15:30 Liver Function Test 12/25/18 15:30 Alanine Aminotransferase (ALT/SGPT) 25 Albumin 4.0 Alkaline Phosphatase 295 H Aspartate Amino Transf (AST/SGOT) 41 Direct Bilirubin 0.00 Total Protein 8.2 H OB Assessment/Plan Reason for admission: active labor Other Assessment: IUP at 38 weeks and 5 days Active labor Mild preeclampsia Asymptomatic Blood pressure does not meet the criteria for severe preeclampsia heart tracing category 1 and reassuring GBS unknown. Patient started on ampicillin for GBS prophylaxis Declined epidural. Discussed with patient regarding expectant management until she received 2 doses of antibiotic and then consider AROM and anticipate Plan of care discussed with patient We will draw labs MANUEL ESCALANTE MD Dec 25, 2018 17:20
[2018-12-25] MEDS ORDERED: MINERAL OIL LIGHT 10 ML VIAL TOP ONE (18:30)
--- NOTE | 2018-12-25 18:55 | LDN ---
Date/Time of Note Date/Time of Note DATE: 12/25/18 TIME: 18:53 Delivery Summary 12/25/2018 Weeks of Gestation 38 weeks and 5 days Placenta Delivered: Spontaneously Meconium: none Episiotomy: No Indication for episiotomy N.A Perineal laceration: 2 Laceration repair: second degree perineal and vaginal lac. Noted, repaired using 2-0 chromic Anesthesia type: None Estimated blood loss: 200 Sponge & Needle done & correct: Yes All needle counts correct: Yes Any foreign bodies felt in the: No Infant Delivery Information Sex Infant Sex: male Apgars 1 Minute: 9 5 Minute: 9 Suctioning Nose & mouth suctioned at sajan: Yes Delee suction performed: Yes Umbilical Cord Umbilical cord with: 3 Vessels Cord presentations: no nuchal cord Mother & Baby Disposition Disposition Placenta delivered intact without any complication. It was noted to be co mplete. Fundus was firm at the end of the delivery after uterine massage. Second-degree perineal laceration and vaginal laceration repaired using 2-0 chromic. Hemostasis complete MANUEL ESCALANTE MD Dec 25, 2018 18:55
[2018-12-25] MEDS ORDERED: AMPICILLIN 1 GM/NS (PMX) 50 ML IV SCH (20:00)
[2018-12-25 20:45] VITALS: BP 135/68; PULSE 102; RESP 20
[2018-12-25] MEDS ORDERED: NACL 0.9% 3 ML SYG IV SCH (21:30)
[2018-12-25] MEDS ORDERED: ACETAMINOPHEN 325 MG TAB PO PRN (21:30)
[2018-12-25] MEDS ORDERED: METHYLERGONOVINE 0.2 MG TAB PO PRN (21:30)
[2018-12-25] MEDS ORDERED: WITCH HAZEL/GLYCERIN PAD PR PRN (21:30)
[2018-12-25] MEDS ORDERED: DIPHENHYDRAMINE 25 MG CAP PO PRN (21:30)
[2018-12-25] MEDS ORDERED: ONDANSETRON 4 MG INJ IV PRN (21:30)
[2018-12-25] MEDS ORDERED: ZOLPIDEM 5 MG TAB PO PRN (21:30)
[2018-12-25] MEDS ORDERED: LANOLIN HPA 1 PKT TOP PRN (21:30)
[2018-12-25] MEDS ORDERED: HYDROCODONE/APAP (5/325) TAB PO PRN (21:30)
[2018-12-25] MEDS: IBUPROFEN 600 MG TAB PO SCH (23:47)
[2018-12-26 00:08] VITALS: BP 112/69; PULSE 90; RESP 20
[2018-12-26 04:31] VITALS: BP 112/62; PULSE 74; RESP 20
[2018-12-26] MEDS: IBUPROFEN 600 MG TAB PO SCH ×4 (05:14→23:32)
[2018-12-26 08:00] VITALS: BP 127/83; PULSE 59; RESP 18
[2018-12-26] MEDS: SENNA/DOCUSATE NA (8.6MG/50MG) TAB PO SCH ×2 (09:10→21:35)
[2018-12-26] MEDS: CALCIUM ACETATE 667 MG CAP PO SCH ×3 (09:11→18:08)
[2018-12-26 16:00] VITALS: BP 131/93; PULSE 78; RESP 18
[2018-12-26 20:00] VITALS: BP 126/77; PULSE 67; RESP 18
--- NOTE | 2018-12-26 20:40 | PD.PPDC ---
[employer] Discharge Instruction Condition Alirn7Gy Patient Condition: [id number] Fair Diet [id number] Diet: Ownwi4c Resume Regular Diet Activity/Restrictions Envir6Da Activity: [id number] Normal Activity May Shower [id number] Restrictions: [id number] No Exercising No Lifting No Driving No Sexual Activity Nothing in the Vagina No [place] No Tampons, douche Follow-up Follow-up with Physician: Week/Weeks Return to clinic for [id number] [employer] Instructions: [id number] Fever greater than 101 Chills Worsening abdominal pain Excessive Vaginal Bleeding More than 2 pads per hour Unable to tolerate diet [id number] OB Instructions: [id number] Breast Tenderness Depression Blurried Vision Headache [id number] Surgical Instructions: [id number] Incisional Drainage Incisional Redness MITCHEL BRAXTON MD Dec 26, 2018 20:40
--- NOTE | 2018-12-26 20:40 | DS ---
Date/Time of Note Date/Time of Note DATE: 12/26/18 TIME: 20:39 Obstetrical Discharge Record Final Diagnosis Final Diagnosis: Term delivered Vaginal Delivery Obstetrical Delivery: Spontaneous, Laceration, Repaired Condition on Discharge Physical Assessment Last Vitals: stable afebrile Voiding: Yes Bowel Movement: Yes Breast: Soft, non-tender, Filling Fundus: Firm Abdomen and Incision: soft nt no distention Calf Tenderness: No Patient Condition: Fair MITCHEL BRAXTON MD Dec 26, 2018 20:40
[2018-12-27 04:00] VITALS: BP 110/63; PULSE 69; RESP 18
[2018-12-27] MEDS: IBUPROFEN 600 MG TAB PO SCH (05:33)
[2018-12-27 07:30] VITALS: BP 119/73; PULSE 76; RESP 18
[2018-12-27] MEDS ORDERED: DIPHTH/TET/ACEL PERTUSS (ADULT) 0.5 ML VIAL IM* ONE (09:00)
[2018-12-27] MEDS ORDERED: VARICELLA VACCINE LIVE/PF 1,350 UNIT/0.5 ML ML SC* ONE (09:00)
[2018-12-27] MEDS ORDERED: MEASLES,MUMPS,RUBELLA VACCINE INJ SC* ONE (09:00)
[2018-12-27] MEDS: SENNA/DOCUSATE NA (8.6MG/50MG) TAB PO SCH (09:12)
== END 2018-12-27 10:20 | disposition home or self-care (01) | DRG 807 ==
LOC: OBT 15:34 → L-D 15:34 → OBT 15:45 → L-D 15:45 → PP1 20:37
PROVIDERS: ADMIT Obstetrics & Gynecology; ATTEND Obstetrics & Gynecology
PROC: 10E0XZZ Delivery of Products of Conception, External Approach (ICD-10-PCS; principal; 2018-12-25)
PROC: 0KQM0ZZ Repair Perineum Muscle, Open Approach (ICD-10-PCS; 2018-12-25)
DX: O14.04 Mild to moderate pre-eclampsia, complicating childbirth (principal); Z37.0 Single live birth; O70.1 Second degree perineal laceration during delivery; Z3A.38 38 weeks gestation of pregnancy
CPT/HCPCS: 80053; 81001; 84560; 85014; 85018; 85025; 85610; 85730; 86592; 86703; 86850; 86900; 86901; 87340; 90716; A4310; G0463; J0290; J2590; J7120